=== PATIENT | male | born 1950 | race Caucasian/White ===

== ENCOUNTER 2019-07-19 13:21 | Day surgery (SDC) | payer MEDICARE, SELFPAY ==
[2019-07-19 13:49] VITALS: BP 146/94; PULSE 76; RESP 16; TEMP 36; O2SAT 99
[2019-07-19] MEDS: SODIUM CHLORIDE 0.9% 1,000 ML 200 ML IV (14:09)
--- NOTE | 2019-07-19 14:54 | PM.HP.1 ---
History of Present Illness History of Present Illness Date Patient Seen: 07/19/19 Time Patient Seen: 14:54 Chief complaint: [id number] Narrative: 69-year-old white male here for a screening colonoscopy has had prior colonoscopy and thought he may have had a polyp at that time. He is asymptomatic Patient History Medical History Colon polyps (Acute) Diverticula of colon (Chronic) HTN (hypertension) (Chronic) Spina bifida (Chronic) Surgical History Status post cholecystectomy (Acute) Family & Social History Family History Father Cancer Mother Age related osteoporosis Social History: household members spouse Tobacco & Substance use: Smoking Status Former smoker Meds Home Medications and Allergies Home Medications Medication Instructions Recorded Confirmed Type lisinopril 10 mg tablet 10 mg PO DAILY 04/29/19 04/29/19 History Allergies Allergy/AdvReac Type Severity Reaction Status Date / Time No Known Drug Allergies Allergy Verified 04/29/19 09:47 Review of Systems Review of Systems ROS Unobtainable: All systems reviewed & are unremarkable except as noted in HPI and below Exam Vital Signs (past 8 hours): - 07/19/19 13:49 Temperature 96.8 F L Pulse Rate 76 Respiratory Rate 16 Blood Pressure 146/94 H Pulse Oximetry 99 Oxygen Delivery Method Room Air Narrative Exam Narrative: Patient is asymptomatic alert and oriented Lungs are clear with no rales or wheezes Heart regular rhythm no murmur Abdomen soft nontender no organomegaly Rectal to be done at colonoscopy Assessment & Plan Assessment & Plan narrative: 69-year-old white male here for screening colonoscopy is asymptomatic is had previous colonoscopy he understands procedure and has no unanswered questions
--- NOTE | 2019-07-19 15:23 | PM.OP.ENDO ---
Operative Date/Time/Diagnoses Date of procedure: 07/19/19 Time of procedure: 15:24 Pre-op diagnosis: Screening colonoscopy Post-op diagnosis: other (Severe sigmoid diverticulosis without diverticulitis) Procedure & Clinicians Study performed: Total colonoscopy to the cecum Same procedure as scheduled: Yes Indications: Screening Surgeon: Rodrigo Neri Procedure Notes SCOAP/Timeout: Done Procedure in detail: The patient was properly identified during surgical pause was given a total of 5 mg of Versed and 250 micro g of fentanyl and remained comfortable throughout the procedure. The flexible fiberoptic colonoscope inserted transanally to the cecum. Patient has severe sigmoid diverticulosis without diverticulitis. There are no polyps or tumors identified. Procedure was well tolerated. Scope withdrawal time: 12 Sedation minutes: 28 Findings: diverticulosis Specimen(s): none sent Complications: none Post-procedure Recommendations: Colonscopy in 10 years Disposition: PACU
[2019-07-19 15:24] VITALS: BP 113/80; PULSE 92; RESP 12; TEMP 37.2; O2SAT 100
[2019-07-19] MEDS: fentaNYL 250 MCG/5 ML INJ IV (15:25)
[2019-07-19] MEDS: MIDAZOLAM 5 MG/5 ML VIAL IV (15:25)
[2019-07-19 15:30] VITALS: BP 115/86; PULSE 78; RESP 16; O2SAT 98
[2019-07-19 15:34] VITALS: BP 120/89; PULSE 70; RESP 12; O2SAT 12
[2019-07-19 15:41] VITALS: BP 125/85; PULSE 69; RESP 10; TEMP 36.2; O2SAT 100
[2019-07-19 16:00] VITALS: BP 126/88; PULSE 60; RESP 16; TEMP 36.7; O2SAT 99
== END 2019-07-19 16:06 | disposition home or self-care (01) ==
PROVIDERS: PCP Hospitalist; Visit Provider Surgery
PROC: 0DJD8ZZ Inspection of Lower Intestinal Tract, Via Natural or Artificial Opening Endoscopic (ICD-10-PCS; CPT 45378; principal; 2019-07-19 15:15)
DX: Z12.11 Encounter for screening for malignant neoplasm of colon (principal); K57.30 Diverticulosis of large intestine without perforation or abscess without bleeding; I10 Essential (primary) hypertension; Q05.9 Spina bifida, unspecified
CPT/HCPCS: G0121; 99152; J2250; J3010

== ENCOUNTER → 2019-11-09 12:06 | Outpatient (CLI) | payer MEDICARE, SELFPAY ==
[2019-11-09 13:48] LABS: Alanine Aminotransferase 26 IU/L (<50); Albumin 4.3 g/dL (3.5-5.0); Albumin Globulin Ratio 1.6 (1.0-2.8); Alkaline Phosphatase 99 U/L (38-126); Aspartate Aminotransferase 26 IU/L (17-59); BUN Creatinine Ratio 18.9 (6-22); Bilirubin Total 0.3 mg/dL (0.2-1.3); Blood Urea Nitrogen 17 mg/dL (9-20); Calcium 9.3 mg/dL (8.4-10.2); Carbon Dioxide 29 mmol/L (22-32); Chloride 101 mmol/L (98-107); Estimated Glomerular Filt Rate > 60.0 mL/min (>60); Globulin 2.7 g/dL (1.7-4.1); Glucose 115 mg/dL (80-110); HEMOLYSIS < 15 (0-50); Potassium 3.8 mmol/L (3.4-5.1); Sodium 139 mmol/L (137-145)
== END ==
PROVIDERS: PCP Family Medicine; Referring Provider Family Medicine; Visit Provider Family Medicine
DX: I10 Essential (primary) hypertension (principal)
CPT/HCPCS: 36415; 80053

== ENCOUNTER → 2020-02-21 08:17 | Outpatient (CLI) | payer MEDICARE, SELFPAY ==
[2020-02-21 10:04] LABS: Add Manual Diff / Slide Review NO; Basophils Absolute Auto 0 /uL (0-100); Basophils Percent Auto 0.3 % (0-2); Eosinophils Absolute Auto 200 /uL (0-450); Eosinophils Percent Auto 4.3 % (2-4); Hematocrit 44.3 % (41-53); Hemoglobin 15.3 g/dL (13.5-17.5); Lymphocytes Absolute Auto 1800 /uL (1100-4500); Lymphocytes Percent Auto 31.6 % (25-40); Mean Corpuscular HGB Conc 34.4 % (30-36); Mean Corpuscular Hemoglobin 31.7 PG (26-34); Mean Corpuscular Volume 92.1 fL (80-100); Monocytes Absolute Auto 600 /uL (0-900); Monocytes Percent Auto 10.2 % (3-14); Neutrophils Absolute Auto 3000 /uL (1500-7000); Neutrophils Percent Auto 53.6 % (50-75); Platelet Count 259 X10^3/uL (150-400); Red Blood Cell Count 4.81 X10^6/uL (4.5-5.9); Red Cell Distribution Width 12.9 % (11.6-14.8); White Blood Cell Count 5.7 X10^3/uL (4.5-11.0)
[2020-02-21 10:15] LABS: Alanine Aminotransferase 33 IU/L (<50); Albumin 4.3 g/dL (3.5-5.0); Albumin Globulin Ratio 1.6 (1.0-2.8); Alkaline Phosphatase 81 U/L (38-126); Aspartate Aminotransferase 36 IU/L (17-59); BUN Creatinine Ratio 16.3 (6-22); Bilirubin Total 0.5 mg/dL (0.2-1.3); Blood Urea Nitrogen 13 mg/dL (9-20); Calcium 9.4 mg/dL (8.4-10.2); Carbon Dioxide 27 mmol/L (22-32); Chloride 107 mmol/L (98-107); Cholesterol 114 mg/dL (140-199); Estimated Glomerular Filt Rate > 60.0 mL/min (>60); Globulin 2.7 g/dL (1.7-4.1); Glucose 98 mg/dL (80-110); HDL Cholesterol 30 mg/dL (40-60); HEMOLYSIS < 15 (0-50); LDL Cholesterol Calculated 63 mg/dL (<100); Potassium 4.5 mmol/L (3.4-5.1); Sodium 143 mmol/L (137-145); Triglycerides 106 mg/dL (35-150)
[2020-02-21 11:07] LABS: Thyroid Stimulating Hormone 2.27 uIU/mL (0.47-4.68)
== END ==
PROVIDERS: PCP Family Medicine; Referring Provider Family Medicine; Visit Provider Family Medicine
DX: Z13.220 Encounter for screening for lipoid disorders (principal); Z13.29 Encounter for screening for other suspected endocrine disorder; E55.9 Vitamin D deficiency, unspecified; I10 Essential (primary) hypertension; R07.9 Chest pain, unspecified
CPT/HCPCS: 36415; 80053; 80061; 84153; 84443; 85025

== ENCOUNTER → 2020-02-25 10:18 | Outpatient (CLI) | payer MEDICARE, SELFPAY ==
[2020-02-25 23:28] LABS: COVID19 Sendout Not Detected (Not Detect)
== END ==
PROVIDERS: PCP Family Medicine; Visit Provider Physician Assistant
DX: Z01.812 Encounter for preprocedural laboratory examination (principal)
CPT/HCPCS: 87635

== ENCOUNTER → 2020-02-28 09:37 | Outpatient (CLI) | payer MEDICARE, SELFPAY ==
--- NOTE | 2020-02-28 15:05 | PM.TREADMILL ---
Cardiac Stress Test Report Referral & Results Date Patient Seen: 02/28/20 Requesting provider: Garth Beebe Indication: Chest discomfort Rest ECG: Unremarkable Procedure Note: Today following both written and verbal informed consent the patient was exercised according to a standard Iván protocol patient went for a total of 7 minutes 28 seconds achieving a maximum heart rate of 144 maximum systolic blood pressure of 188. This is approximately 10.1 METS. Exercise was terminated at this point because of targets were met. Patient was also given Cardiolite through a previously started Hep-Lock IV by the diagnostic imaging staff approximately 1 minute prior to the cessation of exercise. There was some low ST-T segment drooping or flattening with minor depression present leads V4 through V6 with exercise that almost immediately resorted to baseline upon cessation of activity Occasional PAC and 2 or 3 brief (3-5 beats) runs of SVT Functional aerobic impairment rates-10% on the active scale or 10% better than average Impression: No clear evidence of ischemia. Nonspecific ST changes as above Please see perfusion imaging report as well Excellent exercise capacity Please note: Actual ECG tracings can be found in the PACS system.
--- NOTE | 2020-02-29 05:50 | DI.NM.S_ITS ---
DATE OF SERVICE: PROCEDURE: Exercise Perfusion Study. DATE OF STUDY: 02/28/2020. INDICATIONS: Chest pain with underlying hypertension. RADIOPHARMACEUTICAL: 35.8 millicurie technetium-99m Myoview intravenous was injected at stress and 11.5 millicurie technetium-99m Myoview intravenous was injected at rest. CARDIAC STRESS: The patient underwent exercise perfusion study under the supervision of an attending staff. The patient walked on Iván protocol for 7 minutes 28 seconds and achieved 97% of target heart rate, normal blood pressure response, functional aerobic impairment of -10% and 10.1 METS of workload. The test was discontinued because targets were met. Baseline EKG revealed sinus rhythm with diffuse upsloping repolarization changes. During stress, there was some nonspecific upsloping ST depression in inferolateral leads with recovery. In recovery, patient has 3-5 beats of narrow QRS tachycardia like SVT. No obvious AFib seen. Occasional PACs were seen as well. No ventricular tachycardia. RAW DATA: There is increased subdiaphragmatic activity. Patient's weight is 210 pounds. GATED STUDY: Resting LV ejection fraction 72% and stress LV ejection fraction 82%. No obvious wall motion abnormalities. Resting end-diastolic volume 105 mL. No transient ischemic dilatation. TID ratio 0.64, which is within normal limits. Lung heart ratio 0.36, which is within normal limits. MYOCARDIAL PERFUSION SCAN: Stress supine images revealed small size mildly decreased perfusion of the basal inferior septum. Resting supine images revealed a small size mildly decreased perfusion of base to mid anterior wall and basal inferior septum. During prone images, all those above-mentioned defects got normalized. There was normal myocardial perfusion. CONCLUSION: I will call this study a normal myocardial perfusion study with evidence of tissue attenuation artifact which got resolved during prone images as stated above. Good exercise tolerance. Functional aerobic impairment -10%. Normal hemodynamic response. No significant sustained arrhythmias seen. As far as perfusion scan is concerned, this is a low risk myocardial perfusion scan. Ton Jackson - KAILA/becca/lee doc#: [id number]/job#: [id number] dd: 02/28/2020 16:50:00 dt: 02/29/2020 05:16:00 DICTATING MD/COPIES TO: Wayne Gomes MD COPIES MNE: CHARISSA;
== END ==
PROVIDERS: PCP Family Medicine; Referring Provider Family Medicine; Visit Provider Family Medicine
DX: R07.89 Other chest pain (principal); I10 Essential (primary) hypertension
CPT/HCPCS: 78452; 93016; 93017; 93018; A9502

== ENCOUNTER → 2020-09-22 13:37 | Outpatient (CLI) | payer MEDICARE, SELFPAY ==
[2020-09-22] MEDS: COVID-19 VACC(MODERNA-1)/PF 100 MCG/0.5 ML VIAL IM (13:44)
== END ==
PROVIDERS: PCP Family Medicine; Visit Provider Internal Medicine
DX: Z23 Encounter for immunization (principal)
CPT/HCPCS: 0011A; 91301

== ENCOUNTER → 2020-10-19 09:35 | Outpatient (CLI) | payer MEDICARE, SELFPAY ==
[2020-10-19] MEDS: COVID-19 VACC #2, MRNA(MOD) 100 MCG/0.5 ML VIAL IM (09:42)
== END ==
PROVIDERS: PCP Family Medicine; Visit Provider Internal Medicine
DX: Z23 Encounter for immunization (principal)
CPT/HCPCS: 0012A; 91301

== ENCOUNTER → 2022-03-05 08:04 | Outpatient (CLI) | payer MEDICARE, SELFPAY ==
[2022-03-05 09:19] LABS: Add Manual Diff / Slide Review NO; Basophils Absolute Auto 0 /uL (0-100); Basophils Percent Auto 0.5 % (0-2); Eosinophils Absolute Auto 300 /uL (0-450); Eosinophils Percent Auto 5.1 % (2-4); Hematocrit 44.2 % (41-53); Hemoglobin 14.8 g/dL (13.5-17.5); Lymphocytes Absolute Auto 1700 /uL (1100-4500); Lymphocytes Percent Auto 28.7 % (25-40); Mean Corpuscular HGB Conc 33.5 % (30-36); Mean Corpuscular Hemoglobin 30.8 PG (26-34); Mean Corpuscular Volume 91.8 fL (80-100); Monocytes Absolute Auto 600 /uL (0-900); Neutrophils Absolute Auto 3200 /uL (1500-7000); Neutrophils Percent Auto 54.7 % (50-75); Platelet Count 255 X10^3/uL (150-400); Red Blood Cell Count 4.82 X10^6/uL (4.5-5.9); Red Cell Distribution Width 13.3 % (11.6-14.8); White Blood Cell Count 5.8 X10^3/uL (4.5-11.0)
[2022-03-05 10:25] LABS: Thyroid Stimulating Hormone 1.83 uIU/mL (0.47-4.68)
[2022-03-05 12:11] LABS: Alanine Aminotransferase 22 IU/L (<50); Albumin 4.1 g/dL (3.5-5.0); Albumin Globulin Ratio 1.9 (1.0-2.8); Alkaline Phosphatase 86 U/L (38-126); Aspartate Aminotransferase 28 IU/L (17-59); BUN Creatinine Ratio 14.8 (6-22); Bilirubin Total 0.6 mg/dL (0.2-1.3); Blood Urea Nitrogen 13 mg/dL (9-20); Calcium 8.7 mg/dL (8.4-10.2); Carbon Dioxide 27 mmol/L (22-32); Chloride 106 mmol/L (98-107); Cholesterol 137 mg/dL (140-199); Estimated Glomerular Filt Rate > 60 mL/min (>60); Globulin 2.2 g/dL (1.7-4.1); Glucose 96 mg/dL (80-110); HDL Cholesterol 35 mg/dL (40-60); HEMOLYSIS < 15 (0-50); LDL Cholesterol Calculated 79 mg/dL (<100); Potassium 4.8 mmol/L (3.4-5.1); Sodium 140 mmol/L (137-145); Total Protein 6.3 g/dL (6.3-8.2); Triglycerides 116 mg/dL (35-150)
[2022-03-05 12:41] LABS: Prostate Specific Antigen 2.13 ng/mL (0.10-4.00)
== END ==
PROVIDERS: PCP Family Medicine; Referring Provider Family Medicine; Visit Provider Family Medicine
DX: I10 Essential (primary) hypertension (principal); R07.9 Chest pain, unspecified; E55.9 Vitamin D deficiency, unspecified
CPT/HCPCS: 80053; 80061; 82306; 84153; 84443; 85025

== ENCOUNTER → 2023-04-30 07:46 | Outpatient (CLI) | payer MEDICARE, SELFPAY ==
[2023-04-30 08:37] LABS: Alanine Aminotransferase 23 IU/L (<50); Albumin 3.9 g/dL (3.5-5.0); Albumin Globulin Ratio 1.7 (1.0-2.8); Alkaline Phosphatase 100 U/L (38-126); Aspartate Aminotransferase 28 IU/L (17-59); BUN Creatinine Ratio 12.5 (6-22); Bilirubin Total 0.6 mg/dL (0.2-1.3); Blood Urea Nitrogen 11 mg/dL (9-20); Calcium 8.9 mg/dL (8.4-10.2); Carbon Dioxide 26 mmol/L (22-32); Chloride 105 mmol/L (98-107); Cholesterol 126 mg/dL (140-199); Estimated Glomerular Filt Rate > 60 mL/min (>60); Globulin 2.3 g/dL (1.7-4.1); Glucose 98 mg/dL (80-110); HDL Cholesterol 34 mg/dL (40-60); HEMOLYSIS < 15 (0-50); LDL Cholesterol Calculated 72 mg/dL (<100); Potassium 4.1 mmol/L (3.4-5.1); Sodium 139 mmol/L (137-145); Total Protein 6.2 g/dL (6.3-8.2); Triglycerides 100 mg/dL (35-150)
[2023-04-30 08:40] LABS: Add Manual Diff / Slide Review NO; Basophils Absolute Auto 0 /uL (0-100); Basophils Percent Auto 0.3 % (0-2); Eosinophils Absolute Auto 300 /uL (0-450); Eosinophils Percent Auto 4.6 % (2-4); Hematocrit 44.2 % (41-53); Hemoglobin 15.4 g/dL (13.5-17.5); Lymphocytes Absolute Auto 1000 /uL (1100-4500); Lymphocytes Percent Auto 15.8 % (25-40); Mean Corpuscular HGB Conc 34.8 % (30-36); Mean Corpuscular Hemoglobin 31.7 PG (26-34); Mean Corpuscular Volume 91.2 fL (80-100); Monocytes Absolute Auto 600 /uL (0-900); Monocytes Percent Auto 10.1 % (3-14); Neutrophils Absolute Auto 4400 /uL (1500-7000); Neutrophils Percent Auto 69.2 % (50-75); Platelet Count 249 X10^3/uL (150-400); Red Blood Cell Count 4.85 X10^6/uL (4.5-5.9); White Blood Cell Count 6.3 X10^3/uL (4.5-11.0)
[2023-04-30 09:07] LABS: Prostate Specific Antigen Scrn 2.59 ng/mL (0.1-4.0)
== END ==
PROVIDERS: PCP Family Medicine; Referring Provider Family Medicine; Visit Provider Family Medicine
DX: I10 Essential (primary) hypertension (principal); Z12.5 Encounter for screening for malignant neoplasm of prostate
CPT/HCPCS: 36415; 80053; 80061; 85025; G0103

== ENCOUNTER 2023-10-27 09:47 | Day surgery (SDC) | payer OTHER, SELFPAY ==
--- NOTE | 2023-10-27 | PATH_ITS ---
[facility] Accession Number: [id number] No. of containers..04 Tissue . 01 Material submitted: . PART A: duodenum - DUODENUM PART B: gastrointestinal site - ANTRUM PART C: esophagus, E-G Junction - GE JUNCTION NODULE PART D: esophagus - MID ESOPHAGUS . 01 Diagnosis: A. Duodenum, Biopsy: Duodenal mucosa with no diagnostic abnormality. Negative for active inflammation, features of sprue, dysplasia, or malignancy. . B. Stomach, Antrum, Biopsy: Antral mucosa with mild chronic gastritis. Negative for Helicobacter by immunohistochemistry. Negative for intestinal metaplasia. Negative for dysplasia and malignancy. . C. Gastroesophageal Junction, Nodule: Polypoid squamous mucosa with mild papillary features and fibrovascular cores, suggestive of benign squamous papilloma. Mild active inflammation. Negative for fungal organisms on PAS stain. Negative for dysplasia and malignancy. . D. Mid Esophagus, Biopsy: Squamous epithelium with no diagnostic abnormality. Intraepithelial eosinophils are not increased. Negative for dysplasia and malignancy. [facility] 10/30/2023 1439 Local . 01 Electronically signed: . Priya Young MD, Pathologist NPI- [id number] . 01 Gross description: . Part A: DUODENUM: Received in formalin is multiple fragment(s) of ziegler, soft tissue measuring 0.5 x 0.5 x 0.1 cm in aggregate submitted entirely in 1 cassette(s) Part B: ANTRUM: Received in formalin is 2 fragment(s) of ziegler, soft tissue measuring 0.2 x 0.2 x 0.1 cm to 0.2 x 0.1 x 0.1 cm submitted entirely in 1 cassette(s) Part C: GE JUNCTION NODULE: Received in formalin is multiple fragment(s) of ziegler, soft tissue measuring 0.5 x 0.5 x 0.1 cm in aggregate submitted entirely in 1 cassette(s) Part D: MID ESOPHAGUS: Received in formalin is 1 fragment(s) of ziegler, soft tissue measuring 0.2 x 0.2 x 0.1 cm submitted entirely in 1 cassette(s) /AAY 10/28/2023 0422 Local . 01 Microscopic: . B. An immunohistochemical stain was performed to evaluate for Helicobacter organisms and is negative. The control stain showed appropriate reactivity. . C. An AB/PAS stain is performed to evaluate for fungal organisms and is negative. The control stain showed appropriate reactivity. . * This test was developed and its performance characteristics determined by [facility]. It has not been cleared or approved by the U.S. Food and Drug Administration. The FDA has determined that such clearance or approval is not necessary. This test is used for clinical purposes. It should not be regarded as investigational or for research. . 01 Pathologist provided ICD-10: R13.10 . 01 CPT . 767577, 344281, 916532, 250785, 754554, K45133 Specimen Comment: A courtesy copy of this report has been sent to [phone] Performed at: 01 [facility] [address] [place] [address], [place], [place] [id number] MD David Baum MD Phone: [phone]
[2023-10-27 10:03] VITALS: BP 157/85; PULSE 60; RESP 16; TEMP 35.9; O2SAT 99
[2023-10-27] MEDS: LACTATED RINGERS 1,000 ML 42 ML IV (10:30)
[2023-10-27 11:05] VITALS: BP 110/70; PULSE 60; RESP 14; TEMP 36.1; O2SAT 96
--- NOTE | 2023-10-27 11:07 | PM.HP.1 ---
History of Present Illness History of Present Illness Date Patient Seen: 10/27/23 Time Patient Seen: 11:07 Chief complaint: EGD Narrative: Here for symptoms of dysphagia and flatulence. He wanted to set the record straight that he is not on gabapentin which was previously documented in his medical record. [facility] Medical History Jaw pain Dysphagia Bilateral thumb pain Medicare annual wellness visit, subsequent Somatic dysfunction of lower extremity External hemorrhoid, bleeding Internal hemorrhoid History of melanoma Skin lesions, generalized Strain of left knee Pain of right great toe Vitamin D deficiency Chest pain at rest Pelvic somatic dysfunction Segmental and somatic dysfunction of sacral region Segmental and somatic dysfunction of lumbar region Segmental and somatic dysfunction of abdomen and other regions Chronic low back pain without sciatica Venous stasis Colon polyps Spina bifida Diverticula of colon HTN (hypertension) Surgical History Status post cholecystectomy Family History Father Cancer Mother Age related osteoporosis Social History household members: spouse Smoking Status: Former smoker alcohol intake: current substance use type: marijuana Meds Home Medications and Allergies Home Medications Medication Instructions Recorded Confirmed Type lisinopril 20 mg tablet 20 mg PO DAILY #90 tabs 12/13/22 10/27/23 Rx ibuprofen 600 mg tablet 600 mg PO Q6-8H PRN Pain, Moderate 10/27/23 10/27/23 History Allergies Allergy/AdvReac Type Severity Reaction Status Date / Time amoxicillin AdvReac Severe N/V/D Verified 10/27/23 10:01 Review of Systems Review of Systems ROS: Yes All systems reviewed with the patient and are negative except as otherwise documented Exam Vital Signs (past 8 hours): - 10/27/23 10:03 Temperature 96.7 F L Pulse Rate 60 Respiratory Rate 16 Blood Pressure 157/85 H Pulse Oximetry 99 Oxygen Delivery Method Room Air Oxygen Delivery Method Room Air Const General: cooperative HENMT Head: normal to inspection Eyes General: appearance normal, both eyes and all related structures Neck Neck: normal visual inspection Chest Chest: normal inspection of the chest Resp Effort & Inspection: normal respiratory effort Cardio Rate: regular rate GI Inspection: normal to inspection Skin General: no rashes or lesions noted Neuro General: patient alert and patient awake Extrem General: normal to inspection and no pedal edema Psych Appearance: grossly normal Assessment & Plan Assessment & Plan narrative: 73-year-old male with dysphagia and odynophagia. He has excess flatulence. EGD is pursued today.
--- NOTE | 2023-10-27 11:09 | PM.PREOP ---
Pre-operative Note Interval Note History & Physical reviewed/Exam performed by Physician: Yes Changes to H&P: No ASA Class (for procedural sedation): II
--- NOTE | 2023-10-27 11:35 | P.OP.EGD_ITS ---
Operative Date/Time/Diagnoses Date of procedure: 10/27/23 Time of procedure: 11:36 Pre-op diagnosis: Dysphagia and excess flatulence Post-op diagnosis: same Procedure & Clinicians Study performed: EGD with biopsies Same procedure as scheduled: Yes Indications: Dysphagia and excess flatulence Surgeon: Jeffrey Thayer Procedure Notes SCOAP/Timeout: Done Procedure in detail: After the risks and benefits were explained, written and verbal informed consent was obtained. The patient was brought into the procedure room and placed into the left lateral decubitus position. Please see anesthesia notes for sedation details. The scope was introduced into the mouth through the bite block and advanced under direct visualization to the 2nd portion of the duodenum. The scope was slowly withdrawn carefully examining the mucosa for any defects or lesions. Retroflexed views were accomplished in the stomach. The stomach was decompressed, the scope was then removed from the patient who tolerated the procedure well. Sedation minutes: 15 Complications: none Impression: 1. Duodenum: No significant pathology was appreciated from the bulb through to the 2nd portion. Random D2 biopsies were taken for exclusion of sprue in light of the excess gas symptoms. 2. Stomach: The patient had a moderate amount of bile-stained gastric fluid easily suctioned up with the endoscope. There was a gastropathy throughout and therefore biopsies were taken from the antrum for exclusion of Helicobacter or other pathology. No ulcers. No mass lesions. No outlet obstruction. Retroflexed views of the LES were unremarkable. 3. Esophagus: The GE junction was at approximately 45 cm from the incisors. There was no evidence of any obvious esophagitis. The distal esophagus was somewhat tortuous. There was a nodule right at the squamocolumnar GE junction measuring approximately 4-5 mm and this was removed by way of piecemeal cold fo rceps polypectomy. Additional midesophageal biopsies were taken for exclusion of eosinophilic esophagitis. That said I did not identify any obvious visual cues to suggest this entity. Endoscopic diagnosis 1. Tortuous esophagus 2. GE junction nodule 3. Gastropathy Post-procedure Plan for aftercare: 1. Await histopathology. 2. Surveillance upper endoscopy will be contingent on pathology results. Disposition: PACU
[2023-10-27 11:40] VITALS: BP 113/72; PULSE 558; RESP 14; O2SAT 96
[2023-10-27 11:50] VITALS: BP 127/81; PULSE 58; RESP 16; O2SAT 94
[2023-10-27 11:52] VITALS: BP 132/76; PULSE 59; RESP 16; O2SAT 96
--- NOTE | 2023-10-27 12:04 | SUR.PHASEI ---
1145 oral airway removed at 1145
[2023-10-27 12:15] VITALS: BP 163/82; PULSE 52; RESP 16; TEMP 36.1; O2SAT 98
== END 2023-10-27 12:20 | disposition home or self-care (01) ==
PROVIDERS: PCP Family Medicine; Referring Provider Internal Medicine Gastroenterology; Visit Provider Internal Medicine Gastroenterology
PROC: 0DJ08ZZ Inspection of Upper Intestinal Tract, Via Natural or Artificial Opening Endoscopic (ICD-10-PCS; CPT 43235; principal; 2023-10-27 11:00)
DX: R13.10 Dysphagia, unspecified (principal); R14.3 Flatulence; K31.9 Disease of stomach and duodenum, unspecified; K29.50 Unspecified chronic gastritis without bleeding; K22.82 Esophagogastric junction polyp
CPT/HCPCS: 43239; J2704